=== PATIENT | male | born 1960 | race Caucasian/White ===

== ENCOUNTER 2017-01-20 22:00 | Emergency (ER) | payer OTHER ==
[~2017-01-20] VITALS: Ht 180.3 cm; Wt 91.0 kg
[2017-01-20 22:01] VITALS: BP 159/92; PULSE 84; RESP 18; TEMP 98.2; O2SAT 96
[2017-01-20 23:06] VITALS: BP 173/92; PULSE 87; RESP 18; O2SAT 96
[2017-01-20] MEDS ORDERED: LISI-515 PO (23:06)
[2017-01-20] MEDS ORDERED: WATER PILL PO (23:06)
[2017-01-20 23:18] VITALS: BP 145/77; PULSE 81; RESP 20; O2SAT 95
[2017-01-20 23:56] LABS: AUTOMATED NEUTROPHIL # 6.5 TH/MM3 (1.8-7.7); BASOPHIL # 0.2 TH/MM3 (0-0.2); BASOPHIL % 2.1 % (0.0-2.0); EOSINOPHIL # 0.2 TH/MM3 (0-0.4); EOSINOPHIL % 1.5 % (0.0-4.0); HEMO FLAGS DIFF FINAL; LYMPH % 22.2 % (9.0-44.0); LYMPHOCYTE # 2.2 TH/MM3 (1.0-4.8); MEAN CELL VOLUME 98.7 FL (80.0-100.0); MEAN CORPUSCULAR HEMOGLOBIN 34.4 PG (27.0-34.0); MEAN CORPUSCULAR HGB CONC 34.9 % (32.0-36.0); MONO % 7.8 % (0.0-8.0); NEUT % 66.4 % (16.0-70.0); PLATELET COUNT 251 TH/MM3 (150-450); RED BLOOD COUNT 4.97 MIL/MM3 (4.50-5.90); WHITE BLOOD COUNT 9.8 TH/MM3 (4.0-11.0)
[2017-01-21 00:33] LABS: ALKALINE PHOSPHATASE 77 U/L (45-117); TOTAL BILIRUBIN ADULT 0.2 MG/DL (0.2-1.0)
[2017-01-21 00:37] LABS: ALT (GPT) 38 U/L (12-78); ANION GAP 8 MEQ/L (5-15); AST (GOT) 45 U/L (15-37); BICARBONATE 28.2 MEQ/L (21.0-32.0); BLOOD UREA NITROGEN 8 MG/DL (7-18); CHLORIDE 99 MEQ/L (98-107); GLOMERULAR FILTRATION RATE 116 ML/MIN (>89); SODIUM (NA) 135 MEQ/L (136-145)
--- NOTE | 2017-01-21 00:51 | PD ---
HPI Chief Complaint: Musculoskeletal Complaint Time Seen by Provider: 23:08 Travel History International Travel<30 days: No Contact w/Intl Traveler<30days: No Traveled to known affect area: No History of Present Illness HPI Pt complaining that he has aches allo kb his body and feel weakness. Non specific complaints of few days in duration . took nothing for the pain and has not seen another MD for this illness . His PMhx is Hemochromatosis with phelbotomy every month . he is due for his appointment but he says that this pain has nothing to do with iron overload. PFSH Past Medical History Narrative Medical Hemochromatosis- Elevated Iron levels for years Hypertension: Yes Tetanus Vaccination: < 5 Years Influenza Vaccination: No Past Surgical History Surgical History: No Previous Surgery Social History Alcohol Use: Yes (DAILY 4-6 BEERS) Tobacco Use: Yes Substance Use: No Allergies-Medications (Allergen,Severity, Reaction): Coded Allergies: No Known Allergies (Unverified , 01/20/17) Reported Meds & Prescriptions Reported Meds & Active Scripts Active Reported [Water Pill] Unknown Dose PO DAILY Lisinopril 20 Mg Tab 20 Mg PO DAILY Review of Systems General / Constitutional: No: Fever, Chills, Weight Gain, Weight Loss, Other HENT: No: Headaches, Vertigo, Lightheadedness, Sore Throat, Rhinitis, Rhinorrhea, Congestion, Nosebleed, Neck Stiffness, Neck Pain, Masses, Gingival Bleeding, Dental Difficulties, Ear Discharge, Earache, Other Respiratory: No: Shortness of Breath Gastrointestinal: No: Abdominal Pain Genitourinary: No: Dysuria Musculoskeletal: Positive: Myalgias, Weakness Physical Exam Narrative GENERAL: Patient is sleeping comfortably when I enter the room SKIN: Warm and dry. a fwe tatoos HEAD: Atraumatic. Normocephalic. EYES: Pupils equal and round. No scleral icterus. No injection or drainage. ENT: No nasal bleeding or discharge. Mucous membranes pink and moist. NECK: Trachea midline. No JVD. CARDIOVASCULAR: Regular rate and rhythm. RESPIRATORY: No accessory muscle use. Clear to auscultation. Breath sounds equal bilaterally. GASTROINTESTINAL: Abdomen soft, non-tender, nondistended. Hepatic and splenic margins not palpable. MUSCULOSKELETAL: Extremities without clubbing, cyanosis, or edema. No obvious deformities. NEUROLOGICAL: Awake and alert. No obvious cranial nerve deficits. Motor grossly within normal limits. Five out of 5 muscle strength in the arms and legs. Normal speech. PSYCHIATRIC: Appropriate mood and affect; insight and judgment normal. Data Data Last Documented VS Vital Signs Date Time Temp Pulse Resp B/P (MAP) Pulse Ox O2 Delivery O2 Flow Rate FiO2 01/21/17 05:54 01/20/17 23:18 81 20 95 Room Air 01/20/17 22:01 98.2 Orders Orders Complete Blood Count With Diff (01/20/17 23:34) Comprehensive Metabolic Panel (01/20/17 23:34) Chest, Pa & Lat (01/21/17 ) Electrocardiogram (01/20/17 ) Labs Laboratory Tests Test 01/20/17 23:40 White Blood Count 9.8 TH/MM3 Red Blood Count 4.97 MIL/MM3 Hemoglobin 17.1 GM/DL Hematocrit 49.0 % Mean Corpuscular Volume 98.7 FL Mean Corpuscular Hemoglobin 34.4 PG Mean Corpuscular Hemoglobin Concent 34.9 % Red Cell Distribution Width 14.0 % Platelet Count 251 TH/MM3 Mean Platelet Volume 7.5 FL Neutrophils (%) (Auto) 66.4 % Lymphocytes (%) (Auto) 22.2 % Monocytes (%) (Auto) 7.8 % Eosinophils (%) (Auto) 1.5 % Basophils (%) (Auto) 2.1 % Neutrophils # (Auto) 6.5 TH/MM3 Lymphocytes # (Auto) 2.2 TH/MM3 Monocytes # (Auto) 0.8 TH/MM3 Eosinophils # (Auto) 0.2 TH/MM3 Basophils # (Auto) 0.2 TH/MM3 CBC Comment DIFF FINAL Differential Comment Blood Urea Nitrogen 8 MG/DL Creatinine 0.70 MG/DL Random Glucose 95 MG/DL Total Protein 8.0 GM/DL Albumin 3.2 GM/DL Calcium Level 8.9 MG/DL Alkaline Phosphatase 77 U/L Aspartate Amino Transf (AST/SGOT) 45 U/L Alanine Aminotransferase (ALT/SGPT) 38 U/L Total Bilirubin 0.2 MG/DL Sodium Level 135 MEQ/L Potassium Level 4.0 MEQ/L Chloride Level 99 MEQ/L Carbon Dioxide Level 28.2 MEQ/L Anion Gap 8 MEQ/L Estimat Glomerular Filtration Rate 116 ML/MIN [facility] Medical Decision Making Medical Screen Exam Complete: Yes Emergency Medical Condition: Yes Differential Diagnosis viral syndrome vs hypokalemia vs iron overload muscle aches vs PNA Narrative Course Labs returned his hemoglobin is 17 his chest x-ray has no obvious infiltrate the rest of his lab work is normal his potassium is 4 he has no obvious reason for his body aches but there is no need for further investigation in the ER at this time we'll discharge for him to have his phlebotomy done this week by his hematoma doctor discharged Diagnosis Primary Impression: Body aches Justen East MD Jan 21, 2017 00:51
--- NOTE | 2017-01-21 04:08 | RADRPT ---
EXAM DATE/TIME: 01/21/2017 03:54 [facility] COMPARISON: No previous studies available for comparison. INDICATIONS : Patient complains of cough, wheezing, and shortness of breath. MEDICAL HISTORY : None. SURGICAL HISTORY : None. ENCOUNTER: Initial ACUITY: 1 day PAIN SCORE: 0/10 LOCATION: chest FINDINGS: The cardiac silhouette is normal in transverse diameter. The background interstitium is prominent tho ugh this is likely chronic in nature. There is no evidence of pneumonia. There is a granuloma in the left upper lobe. CONCLUSION: 1. No acute cardiopulmonary disease. Ernie Diego MD on January 21, 2017 at 4:05 Board Certified Radiologist. This report was verified electronically.
--- NOTE | 2017-01-21 18:08 | EKG ---
Date Performed: 01/20/2017 Time Performed: 23:11:46 PTAGE: 56 years EKG: Sinus rhythm NORMAL ECG NO PREVIOUS TRACING DOCTOR: Jaz Neville Interpretating Date/Time 01/21/2017 18:06:46
== END 2017-01-21 05:54 | disposition home or self-care (01) ==
LOC: NEPC 22:00
DX: R52 Pain, unspecified (principal); R53.1 Weakness; E83.119 Hemochromatosis, unspecified; I10 Essential (primary) hypertension; Z79.899 Other long term (current) drug therapy; Z72.0 Tobacco use
CPT/HCPCS: 71020; 80053; 85025; 93005; 99284